=== PATIENT | male | born 1980 | race American Indian/Alaskan Native ===

== ENCOUNTER 2021-08-25 20:15 | Emergency (ER) | payer SELFPAY ==
[2021-08-25] MEDS ORDERED: ASPIRIN 325 MG TAB PO ONE (20:22)
--- NOTE | 2021-08-25 20:52 | XRay Report ---
XR chest routine 2V INDICATION / CLINICAL INFORMATION: chest pain COMPARISON: None available. FINDINGS: SUPPORT DEVICES: None. HEART / MEDIASTINUM: No significant abnormality. LUNGS / PLEURA: Lungs are clear. Costophrenic sulci are sharp. No pneumothorax. ADDITIONAL FINDINGS: No significant additional findings. IMPRESSION: 1. No acute findings. Signer Name: Srikanth Garcia MD Signed: 08/25/2021 8:48 PM Workstation Name: [id number]
[2021-08-25 21:09] LABS: Basophils # (Auto) 0.1 K/mm3 (0.0-0.1); Basophils % (Auto) 1.4 % (0.0-1.8); Eosinophils # (Auto) 0.1 K/mm3 (0.0-0.4); Eosinophils % (Auto) 1.3 % (0.0-4.3); Hematocrit 39.4 % (35.5-45.6); Hemoglobin 12.9 gm/dl (11.8-15.2); Lymphocytes % (Auto) 36.7 % (13.4-35.0); Mean Corpuscular HGB Conc 33 % (32-34); Mean Corpuscular Volume 83 fl (84-94); Monocytes # (Auto) 0.6 K/mm3 (0.0-0.8); Monocytes % (Auto) 10.1 % (0.0-7.3); Platelet Count 282 K/mm3 (140-440); Red Blood Count 4.74 M/mm3 (3.65-5.03); Red Cell Distribution Width 16.3 % (13.2-15.2)
[2021-08-25 21:32] LABS: Alanine Aminotransferase 23 units/L (7-56); Albumin 4.4 g/dL (3.9-5); BUN/Creatinine Ratio 14; Blood Urea Nitrogen 14 mg/dL (9-20); Calcium 9.2 mg/dL (8.4-10.2); Hemolysis Index 14
--- NOTE | 2021-08-26 09:07 | Electrocardiograph Report ---
[facility] Test Date: 2021-08-25 Test Time: 20:28:43 Pat Name: PERI LAWSON Department: Room: Gender: M Concreting Supervisor: DELICIA : 1980 Requested By: ED DOC Order Number: [id number] Reading MD: Toni Luna Measurements Intervals [place] Rate: 85 P: 23 VT: 217 QRS: -30 QRSD: 109 T: 29 QT: 392 QTc: 467 Interpretive Statements Sinus rhythm Prolonged VT interval Probable left atrial enlargement Incomplete RBBB and LAFB Left ventricular hypertrophy No previous ECG available for comparison Electronically Signed On 08-26-2021 9:06:47 EDT by Toni Luna
[2021-08-26] MEDS ORDERED: POTASSIUM CHLORIDE ER 20 MEQ TAB PO ONE (11:39)
[2021-08-26] MEDS ORDERED: cloNIDine 0.1 MG TAB PO ONE (13:02)
[2021-08-26 13:08] VITALS: BP 169/120
--- NOTE | 2021-08-26 13:09 | Emergency Department Report ---
ED Chest Pain HPI - General Chief Complaint: Chest Pain Stated Complaint: CHEST PAIN Time Seen by Provider: 08/26/21 11:38 Source: patient Mode of arrival: Ambulatory Limitations: No Limitations - History of Present Illness Initial Comments: 41-year-old male with no past medical history who smokes intermittently and drinks alcohol once every other day now presented with chest pain that has been going on for about 3 days. Patient rated pain as 3/4 in severity. No fever or chills reported. No other modifying or associated factors reported. MD Complaint: chest pain Severity scale (0 -10): 0 - Related Data Previous Rx's Medication Instructions Recorded Last Taken Type hydroCHLOROthiazide [HCTZ] 25 mg PO QDAY 30 Days #30 tablet NS 08/26/21 Unknown Rx Allergies Allergy/AdvReac Type Severity Reaction Status Date / Time No Known Allergies Allergy Verified 08/25/21 20:21 Heart Score - HEART Score History: Slightly suspicious EKG: Normal Age: < 45 Risk factors: No known risk factors Troponin: < normal limit HEART Score: 0 - EKG Read Time Time EKG Completed: 20:30 EKG Read Time: 22:00 - Critical Actions Critical Actions: 0-3 pts:0.9-1.7%risk of adverse cardiac event.Candidate for discharge ED Review of Systems ROS: Stated complaint: CHEST PAIN Other details as noted in HPI Comment: All other systems reviewed and negative Cardiovascular: chest pain, other (Hypertensive crisis) ED Past Medical Hx - Past Medical History Previous Medical History?: Yes Hx Hypertension: Yes - Surgical History Past Surgical History?: No - Social History Smoking Status: Never Smoker Substance Use Type: None - Medications Home Medications: Home Medications Medication Instructions Recorded Confirmed Last Taken Type hydroCHLOROthiazide [HCTZ] 25 mg PO QDAY 30 Days #30 tablet NS 08/26/21 Unknown Rx ED Physical Exam - General Limitations: No Limitations General appearance: alert, in no apparent distress - Head Head exam: Present: normal inspection - Eye Eye exam: Present: normal appearance Pupils: Present: normal accommodation - ENT ENT exam: Present: normal exam, normal orophraynx, mucous membranes moist - Neck Neck exam: Present: normal inspection, full ROM. Absent: tenderness - Respiratory Respiratory exam: Present: normal lung sounds bilaterally. Absent: respiratory distress, accessory muscle use - Cardiovascular Cardiovascular Exam: Present: regular rate, normal rhythm, normal heart sounds - GI/Abdominal GI/Abdominal exam: Present: soft, normal bowel sounds. Absent: distended, t enderness - Extremities Exam Extremities exam: Present: normal inspection, full ROM, normal capillary refill. Absent: tenderness - Back Exam Back exam: Present: normal inspection. Absent: tenderness - Neurological Exam Neurological exam: Present: alert, oriented X3 - Psychiatric Psychiatric exam: Present: normal affect, normal mood - Skin Skin exam: Present: warm, intact ED Course Vital Signs 08/25/21 08/26/21 08/26/21 20:19 11:17 11:31 Temperature 98.4 F Pulse Rate 90 82 96 H Respiratory 18 23 24 Rate Blood Pressure 173/117 Blood Pressure 193/136 [Left] O2 Sat by Pulse 100 99 96 Oximetry 08/26/21 08/26/21 08/26/21 11:39 11:45 12:01 Temperature Pulse Rate 83 88 77 Respiratory 20 17 16 Rate Blood Pressure 171/119 166/114 Blood Pressure 171/119 [Left] O2 Sat by Pulse 99 99 99 Oximetry 08/26/21 13:01 Temperature Pulse Rate 77 Respiratory 16 Rate Blood Pressure 169/120 Blood Pressure [Left] O2 Sat by Pulse 99 Oximetry - Reevaluation(s) Reevaluation #1: 08/26/21 13: Patient Here with chest pain that is been going on intermittently for the last 3 days--patient also reports blood pressure of 190/130 on presentation--hypertensive crisis could have resulted in the chest pressure --especially with improved blood pressure without medication as a result of relaxation--differential could be among other things mild cardiac infarction, pulmonary embolism, mild pneumothorax, pneumonia, upper respiratory tract infection, or anxiety with GI reflux. To rule out we will go ahead and get routine cardiopulmonary work-up that include troponin, EKG, CBC, CMP, BNP, CMP, urinalysis and drug screen. In the meantime given clonidine 0.1 p.o. x1 to treat the hypertension at 169/120 Reevaluation #2: 08/26/21 13:09 Patient lab reviewed to be within normal limit--with -3 repeated troponin which rule out cardiac as a source of the pressure. Patient reassured and discharged home with hydrochlorothiazide for his hypertension with close follow-up with primary doctor. REGINALDO score - Reginaldo Score Age > 65: (0) No Aspirin use within the Past 7 Days: (0) No 3 or more CAD Risk Factors: (0) No 2 or more Angina events in past 24 hrs: (0) No Known CAD with more than 50% Stenosis: (0) No Elevated Cardiac Markers: (0) No ST Deviation Greater than 0.5mm: (0) No REGINALDO Score: 0 ED Medical Decision Making - Lab Data Result diagrams: 08/25/21 20:40 08/25/21 20:40 - EKG Data -: EKG Interpreted by [place] EKG shows normal: sinus rhythm Rate: normal - EKG Data 08/26/21 13:10 Noted with sinus rhythm at a rate of 85 bpm, LVH with no ST elevation or depression noted on this abnormal ECG. Critical care attestation.: If time is entered above; I have spent that time in minutes in the direct care of this critically ill patient, excluding procedure time. ED Disposition Clinical Impression: Hypertensive crisis, Non-cardiac chest pain Disposition: HOME / SELF CARE / HOMELESS Is pt being admited?: No Does the pt Need Aspirin: No Condition: Stable Instructions: Nonspecific Chest Pain, Adult, [id number], Hypertension, Adult, [id number], Preventing Hypertension, Hypertension (ED) Additional Instructions: It is very important that you take your antihypertensive medication as prescribed to continue to help your symptoms It is equally important for you to call and schedule follow-up with your primary doctor in the next 3 to 5 days for progress Please do not hesitate to call or return to emergency if your symptoms worsen Prescriptions: hydroCHLOROthiazide [HCTZ] 25 mg PO QDAY 30 Days #30 tablet NS Referrals: GUS WEN MD [Referring] - 3-5 Days Time of Disposition: 13:14
== END 2021-08-26 14:53 | disposition home or self-care (01) ==
LOC: ED 20:15
DX: I16.9 Hypertensive crisis, unspecified (principal); R07.9 Chest pain, unspecified
CPT/HCPCS: 36415; 71046; 80053; 84484; 85025; 93005; 99284